=== PATIENT | female | born 1945 | race Asian ===

== ENCOUNTER → 2022-07-02 10:35 | Outpatient (CLI) | payer OTHER, MEDICARE, SELFPAY ==
--- NOTE | 2022-07-02 | DI.RAD.S_ITS ---
PROCEDURE: XR LUMBAR SPINE 2-3V INDICATIONS: Low back pain, unspecified TECHNIQUE: 3 views of the lumbar spine were acquired. COMPARISON: None. FINDINGS: Bones: Generalized decrease in osseous mineralization noted. Disc space narrowing hypertrophic facet joints noted throughout the lumbar spine, particularly in the lower lumbar spine. Grade 1 anterior spondylolisthesis noted at L4-5 and L5-S1. Degenerative sclerosis noted involving both sacroiliac joints as well Soft tissues: Atherosclerotic calcification in the abdominal aorta noted without evidence of aneurysm. Surgical clips noted in the right upper quadrant IMPRESSION: Multilevel degenerative disc disease and arthropathy results in grade 1 anterior spondylolisthesis L4-5 and L5-S1 Osteopenia, atherosclerosis and cholecystectomy Approved by: Daron Gan M.D. on 07/02/2022 at 17:28
== END ==
PROVIDERS: Family Provider Internal Medicine; PCP Internal Medicine; Referring Provider Nurse Practitioner Family; Visit Provider Nurse Practitioner Family
DX: M51.36 Other intervertebral disc degeneration, lumbar region (principal); M51.37 Other intervertebral disc degeneration, lumbosacral region; M47.816 Spondylosis without myelopathy or radiculopathy, lumbar region; M47.817 Spondylosis without myelopathy or radiculopathy, lumbosacral region; M43.16 Spondylolisthesis, lumbar region; M43.17 Spondylolisthesis, lumbosacral region; M85.88 Other specified disorders of bone density and structure, other site; I70.0 Atherosclerosis of aorta; M54.50 Low back pain, unspecified; Z90.49 Acquired absence of other specified parts of digestive tract
CPT/HCPCS: 72100

== ENCOUNTER → 2022-12-04 12:55 | Outpatient (CLI) | payer OTHER, MEDICARE, SELFPAY ==
--- NOTE | 2022-12-04 | DI.MRI.S_ITS ---
PROCEDURE: MR LUMBAR SPINE WO CON INDICATIONS: DEGENERATIVE SPONDYLOLISTHESIS TECHNIQUE: Noncontrast sagittal T1 spin echo and T2 fast echo, sagittal STIR, and T2 fast spin echo through the lumbar spine. In cases with scoliosis, additional coronal T2 fast spin echo may be performed. COMPARISON: [facility], MR, MR THORACIC SPINE WITH/WITHOUT CONTRAST, 03/31/2021, 14:34. [facility], CR, XR LUMBAR SPINE 2-3V, 07/02/2022, 10:43. FINDINGS: Image quality: Excellent. Alignment and Curvature: There is trace anterolisthesis of L3 on L4, L4 on L5. Bone Marrow: Marrow is of normal overall signal. Focus of decreased T1 and T2 signal is present at T12. This is unchanged compared to prior exam in 2017.. No acute vertebral body compression fractures. Spinal Cord: Conus medullaris terminates at the L1 level. Visualized cord demonstrates normal signal and size. Paraspinous Soft Tissues: No paravertebral masses. T2 hyperintensities are present within the kidneys most suggestive of simple cysts. Discs: Mild multilevel disc desiccation. T12-L1: No disc bulge, spinal stenosis or foraminal narrowing. No interval change. L1-L2: No disc bulge or spinal stenosis. Mild left foraminal narrowing with facet and ligamentum flavum hypertrophy. Minimal epidural lipomatosis. L2-L3: Minimal disc bulge with minimal to mild spinal stenosis. Moderate bilateral foraminal narrowing with facet and ligamentum flavum hypertrophy. L3-L4: Mild disc bulge with moderate to severe spinal stenosis and canal compression. Moderate to severe bilateral foraminal narrowing with facet and ligamentum flavum hypertrophy. L4-L5: Mild disc bulge with severe spinal stenosis and canal compression. Moderate bilateral foraminal narrowing with facet and ligamentum flavum hypertrophy. L5-S1: Mild disc bulge with mild spinal stenosis. Mild left foraminal narrowing with facet and ligament flavum hypertrophy. IMPRESSION: Multilevel spinal stenosis most severe at L4-5 secondary to disc bulge with contributing effect of facet/ligamentum flavum arthropathy. Multilevel overall moderate to severe foraminal narrowing secondary to facet arthropathy. Hypointense T1 and T2 signal within the T12 vertebral body stable since 2020 and suggestive of lipid poor hemangioma. Dictated by: Carolynn Cordoba M.D. on 12/04/2022 at 16:51 Approved by: Carolynn Cordoba M.D. on 12/04/2022 at 16:55
== END ==
PROVIDERS: Family Provider Internal Medicine; PCP Internal Medicine; Referring Provider Orthopaedic Surgery Orthopaedic Surgery of the Spine; Visit Provider Orthopaedic Surgery Orthopaedic Surgery of the Spine
DX: M43.10 Spondylolisthesis, site unspecified (principal); R29.898 Other symptoms and signs involving the musculoskeletal system; M48.061 Spinal stenosis, lumbar region without neurogenic claudication; M51.36 Other intervertebral disc degeneration, lumbar region; M47.816 Spondylosis without myelopathy or radiculopathy, lumbar region
CPT/HCPCS: 72148

== ENCOUNTER → 2022-12-24 09:30 | Outpatient (CLI) | payer OTHER, MEDICARE, SELFPAY | PROVIDERS: Family Provider Internal Medicine; PCP Physician Assistant; Referring Provider Orthopaedic Surgery Orthopaedic Surgery of the Spine; Visit Provider Orthopaedic Surgery Orthopaedic Surgery of the Spine | DX: Z01.818 Encounter for other preprocedural examination (principal) | CPT/HCPCS: 93005 ==

== ENCOUNTER → 2022-12-25 07:03 | Outpatient (CLI) | payer OTHER, MEDICARE, SELFPAY ==
[2022-12-25 08:20] LABS: BUN Creatinine Ratio 26.5 (6-22); Blood Urea Nitrogen 18 mg/dL (7-17); Calcium 9.4 mg/dL (8.4-10.2); Carbon Dioxide 30 mmol/L (22-32); Chloride 101 mmol/L (98-107); Estimated Glomerular Filt Rate > 60 mL/min (>60); Glucose 104 mg/dL (80-110); HEMOLYSIS < 15 (0-50); Potassium 3.8 mmol/L (3.4-5.1); Sodium 137 mmol/L (137-145)
[2022-12-25 08:21] LABS: Add Manual Diff / Slide Review NO; Basophils Absolute Auto 100 /uL (0-100); Basophils Percent Auto 1.1 % (0-2); Eosinophils Absolute Auto 0 /uL (0-450); Eosinophils Percent Auto 0.9 % (2-4); Hemoglobin 13.3 g/dL (12.0-16.0); Lymphocytes Absolute Auto 2200 /uL (1100-4500); Lymphocytes Percent Auto 41.5 % (25-40); Mean Corpuscular Volume 91.2 fL (80-100); Monocytes Absolute Auto 400 /uL (0-900); Monocytes Percent Auto 8.2 % (3-14); Neutrophils Absolute Auto 2600 /uL (1500-7000); Neutrophils Percent Auto 48.3 % (50-75); Platelet Count 307 X10^3/uL (150-400); Red Blood Cell Count 4.27 X10^6/uL (4.0-5.2); Red Cell Distribution Width 12.7 % (11.6-14.8); White Blood Cell Count 5.3 X10^3/uL (4.5-11.0)
[2022-12-26 07:31] LABS: x Labcorp Estim. Avg Glu (eAG) 123 mg/dL (.); x Labcorp Hemoglobin A1c 5.9 % (4.8-5.6)
== END ==
PROVIDERS: Family Provider Internal Medicine; PCP Physician Assistant; Referring Provider Orthopaedic Surgery Orthopaedic Surgery of the Spine; Visit Provider Orthopaedic Surgery Orthopaedic Surgery of the Spine
DX: Z01.812 Encounter for preprocedural laboratory examination (principal); R73.9 Hyperglycemia, unspecified
CPT/HCPCS: 36415; 80048; 83036; 85025

== ENCOUNTER → 2023-01-17 12:28 | Outpatient (CLI) | payer OTHER, MEDICARE, SELFPAY ==
--- NOTE | 2023-01-17 | DI.CT.S_ITS ---
PROCEDURE: CT LUMBAR SPINE WO CON INDICATIONS: Spinal stenosis, lumbar region TECHNIQUE: Noncontrast 3 mm thick sections acquired from the T12 level to the sacrum. Sagittal and coronal reformats were constructed. For radiation dose reduction, the following was used: automated exposure control. COMPARISON: [facility], MR, MR LUMBAR SPINE WO CON, 12/04/2022, 13:37. FINDINGS: Image quality: Diagnostic Bones: There is normal bony alignment. No acute vertebral body compression fractures. No suspicious lytic or blastic bony lesions. No pars defects. T12-L1: Bilateral facet arthropathy. No significant neuroforaminal or spinal canal stenosis. L1-L2: Degenerative endplate changes. Mild bilateral facet arthropathy. Mild bilateral neuroforaminal stenosis. No significant spinal canal stenosis. L2-L3: Moderate bilateral facet arthropathy. Ligamentum flavum hypertrophy. Minimal disc bulge. Moderate bilateral neural foraminal stenosis without significant spinal canal stenosis. L3-L4: Moderate bilateral facet arthropathy. Ligamentum flavum hypertrophy. Small disc bulge. Moderate-severe bilateral neuroforaminal stenosis. Moderate-severe spinal canal stenosis. L4-L5: Stable grade 1 anterolisthesis of L4 on L5. Severe bilateral facet arthropathy. Symmetric disc bulge. Severe spinal canal stenosis. Moderate bilateral neuroforaminal stenosis. L5-S1: Mild bilateral facet arthropathy. Ligamentum flavum hypertrophy. Minimal symmetric disc bulge. Mild spinal canal stenosis. Mild bilateral neuroforaminal stenosis. Soft tissues: No retroperitoneal masses or hematomas. Visualized aorta is normal in caliber. Atherosclerosis. Status post cholecystectomy. IMPRESSION: 1. Moderate-severe multilevel, multifactorial lumbar spondylosis as detailed above with significant bilateral neuroforaminal stenosis and spinal canal stenosis described above. 2. Accounting for differences in imaging modality, no acute findings and no significant interval change compared to MRI dated December 04, 2022. Dictated by: Shad Fairbanks M.D. on 01/17/2023 at 17:39 Approved by: Shad Fairbanks M.D. on 01/17/2023 at 17:50
== END ==
PROVIDERS: Family Provider Internal Medicine; PCP Physician Assistant; Referring Provider Orthopaedic Surgery Orthopaedic Surgery of the Spine; Visit Provider Orthopaedic Surgery Orthopaedic Surgery of the Spine
DX: M48.062 Spinal stenosis, lumbar region with neurogenic claudication (principal); M48.07 Spinal stenosis, lumbosacral region; M47.816 Spondylosis without myelopathy or radiculopathy, lumbar region; M47.817 Spondylosis without myelopathy or radiculopathy, lumbosacral region
CPT/HCPCS: 72131

== ENCOUNTER → 2023-03-10 09:57 | Outpatient (CLI) | payer OTHER, MEDICARE, SELFPAY ==
--- NOTE | 2023-03-10 | DI.RAD.S_ITS ---
Bone Density Report Name: PRABHA QUINONES Age: 77 Sex: Female Ethnicity: Date of : 1945 Indication: screening for osteoporosis; Referring Provider: SARAH GARCIA Study: Bone densitometry was performed. Exam Date: March 10, 2023 Accession number: [id number] Bone Density: Region BMD T-score Z-score Classification AP Spine(L1-L4) 0.829 -2.0 0.5 Osteopenia Femoral Neck (Left) 0.559 -2.6 -0.5 Osteoporosis Total Hip (Left) 0.689 -2.1 -0.2 Osteopenia Femoral Neck (Right) 0.509 -3.1 -0.9 Osteoporosis Total Hip (Right) 0.629 -2.6 -0.7 Osteoporosis Total Hip Mean 0.659 -2.4 -0.5 Osteopenia World Health Organization criteria for BMD impression classify patients as: Normal (T-score at or above -1.0), Osteopenia (T-score between -1.0 and -2.5), or Osteoporosis (T-score at or below -2.5). 10-year Fracture Risk: FRAX not reported because: Premenopausal woman Some T-score for Spine Total or Hip Total or Femoral Neck at or below -2.5 Treated for osteoporosis Impression: The patient's bone mass is within expected range for age, gender and ethnicity. Discussion: It is important to ask patients whether they are taking their medications and to encourage continued and appropriate compliance with their osteoporosis therapies to reduce fracture risk. It is also important to review their risk factors and encourage appropriate calcium and vitamin D intakes, exercise, fall prevention and other lifestyle measures. Follow-Up: Consider a repeat BMD and Vertebral Fracture Assessment (VFA) exam in 2 years or sooner if medically necessary, to reassess this patient's status. Reported by: AYALA DOUGLAS MD on 03/10/2023 10:55:00 AM.
== END ==
PROVIDERS: Family Provider Internal Medicine; PCP Nurse Practitioner Family; Referring Provider Nurse Practitioner Family; Visit Provider Nurse Practitioner Family
DX: M81.0 Age-related osteoporosis without current pathological fracture (principal); Z13.820 Encounter for screening for osteoporosis; Z79.83 Long term (current) use of bisphosphonates; Z78.0 Asymptomatic menopausal state
CPT/HCPCS: 77080

== ENCOUNTER → 2024-05-16 11:24 | Outpatient (CLI) | payer OTHER, MEDICARE, SELFPAY ==
--- NOTE | 2024-05-16 11:32 | DI.RAD.S_ITS ---
PROCEDURE: XR LUMBAR SPINE MIN 4V INDICATIONS: Spinal stenosis, lumbar region with neurogenic claudication TECHNIQUE: 5 views of the lumbar spine acquired, including flexion and extension views. COMPARISON: [facility], CR, XR LUMBAR SPINE 2-3V, 07/02/2022, 10:43. FINDINGS: Bones: 5 nonrib-bearing vertebrae are present. Grade 1 anterolisthesis of L3 on L4 and L4 on L5. Diffusely decreased osseous mineralization. No vertebral body compression fractures. No suspicious bony lesions. There is multilevel facet arthropathy, worse at L4-5 and L5-S1. Multilevel disc height loss with degenerative endplate changes and spurring is present. Soft tissues: Overlying bowel gas pattern is normal. No suspicious soft tissue calcifications. Atherosclerotic vascular calcifications. Cholecystectomy clips. Flexion/extension: There is significantly limited range of motion, with preserved alignment. IMPRESSION: Similar appearance of multilevel degenerative changes of the lumbar spine with significantly limited range of motion. Dictated by: Anuel Ramos M.D. on 05/16/2024 at 15:16 Approved by: Anuel Ramos M.D. on 05/16/2024 at 15:18
== END ==
PROVIDERS: Family Provider Internal Medicine; PCP Nurse Practitioner Family; Referring Provider Orthopaedic Surgery Orthopaedic Surgery of the Spine; Visit Provider Orthopaedic Surgery Orthopaedic Surgery of the Spine
DX: M48.062 Spinal stenosis, lumbar region with neurogenic claudication (principal); M43.10 Spondylolisthesis, site unspecified; M47.816 Spondylosis without myelopathy or radiculopathy, lumbar region; M47.817 Spondylosis without myelopathy or radiculopathy, lumbosacral region
CPT/HCPCS: 72110

== ENCOUNTER → 2024-05-24 09:14 | Outpatient (CLI) | payer OTHER, MEDICARE, SELFPAY ==
--- NOTE | 2024-05-24 09:48 | EKG_ITS ---
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
[2024-05-24 10:28] LABS: Add Manual Diff / Slide Review NO; Basophils Absolute Auto 100 /uL (0-100); Basophils Percent Auto 0.9 % (0-2); Eosinophils Absolute Auto 100 /uL (0-450); Hematocrit 42.4 % (36-46); Hemoglobin 13.9 g/dL (12.0-16.0); Lymphocytes Absolute Auto 2700 /uL (1100-4500); Lymphocytes Percent Auto 40.2 % (25-40); Mean Corpuscular HGB Conc 32.9 % (30-36); Mean Corpuscular Hemoglobin 30.4 PG (26-34); Mean Corpuscular Volume 92.4 fL (80-100); Monocytes Absolute Auto 500 /uL (0-900); Neutrophils Absolute Auto 3500 /uL (1500-7000); Neutrophils Percent Auto 50.9 % (50-75); Platelet Count 362 X10^3/uL (150-400); Red Blood Cell Count 4.59 X10^6/uL (4.0-5.2); Red Cell Distribution Width 12.9 % (11.6-14.8); White Blood Cell Count 6.8 X10^3/uL (4.5-11.0)
[2024-05-24 11:22] LABS: BUN Creatinine Ratio 24.2 (6-22); Blood Urea Nitrogen 15 mg/dL (7-17); Calcium 9.6 mg/dL (8.4-10.2); Carbon Dioxide 26 mmol/L (22-32); Chloride 103 mmol/L (98-107); Estimated Glomerular Filt Rate > 60 mL/min (>60); Glucose 102 mg/dL (80-110); HEMOLYSIS < 15 (0-50); Potassium 3.9 mmol/L (3.4-5.1); Sodium 138 mmol/L (137-145)
== END ==
LOC: LAB 09:17
PROVIDERS: Family Provider Internal Medicine; PCP Nurse Practitioner Family; Referring Provider Orthopaedic Surgery Orthopaedic Surgery of the Spine; Visit Provider Orthopaedic Surgery Orthopaedic Surgery of the Spine
DX: Z01.818 Encounter for other preprocedural examination (principal); Z01.812 Encounter for preprocedural laboratory examination
CPT/HCPCS: 36415; 80048; 85025; 93005

== ENCOUNTER → 2024-05-25 07:59 | Outpatient (CLI) | payer OTHER, MEDICARE, SELFPAY ==
--- NOTE | 2024-05-25 | DI.MRI.S_ITS ---
PROCEDURE: MR LUMBAR SPINE WO CON INDICATIONS: Spinal stenosis, lumbar region with neurogenic claudication TECHNIQUE: Noncontrast sagittal T1 spin echo and T2 fast echo, sagittal STIR, and T2 fast spin echo through the lumbar spine. In cases with scoliosis, additional coronal T2 fast spin echo may be performed. COMPARISON: [facility], MR, MR LUMBAR SPINE WO CON, 12/04/2022, 13:37. [facility], CR, XR LUMBAR SPINE MIN 4V, 05/16/2024, 11:37. [facility], CT, CT LUMBAR SPINE WO CON, 01/17/2023, 12:50. FINDINGS: Image quality: Excellent. Alignment and Curvature: There is minimal anterolisthesis at L3-L4, with mild grade 1 anterolisthesis at the L4-L5 level. No associated pars defects are seen. Bone Marrow: Marrow is of normal overall signal. No acute vertebral body compression fractures. Spinal Cord: Conus medullaris terminates at the L1 level. Visualized cord demonstrates normal signal and size. Paraspinous Soft Tissues: No paravertebral masses. T12-L1: Normal appearance. L1-L2: No significant abnormality is seen. L2-L3: The disc height is well-preserved. Loss of disc signal is seen at this level. Mild generalized disc bulge is seen. Mild to moderate facet hypertrophy is seen. Associated hypertrophy of the ligamentum flavum can be seen. There is mild right-sided and moderate left-sided neural foraminal narrowing. Mild to moderate central canal narrowing is seen. These imaging findings have mildly progressed compared to the prior study. L3-L4: The disc height is well-preserved. Loss of disc signal is seen at this level. Moderate generalized disc bulge is seen. There is a superimposed central disc protrusion. Moderate to prominent facet hypertrophy is seen. Moderate bilateral neural foraminal narrowing can be seen, right worse than left. Moderate to severe central canal narrowing is seen. Compared to 2022, these degenerative changes are similar. L4-L5: Moderate loss of disc height is seen. Loss of disc signal is seen. Moderate generalized disc bulge is seen. There is a superimposed central disc protrusion. Prominent facet hypertrophy is seen. There is moderate right-sided and at least moderate left-sided neural foraminal narrowing. There is a minimal degree of compression seen upon the exiting left L4 nerve root. There is severe central canal narrowing. These degenerative changes are progressed compared to the prior MRI. L5-S1: Mild loss of disc height is seen. Loss of disc signal is seen. Mild generalized disc bulge is seen. Moderate to prominent facet hypertrophy can be seen. Mild bilateral neural foraminal narrowing is seen. No significant central canal narrowing is seen. When comparison is made with the prior images, these findings are similar. IMPRESSION: Lumbar spine degenerative changes are seen, which are progressed at L4-L5 compared to 2022 and mildly progressed at L2-L3. Dictated by: Zachary Conner M.D. on 05/25/2024 at 11:08 Approved by: Zachary Conner M.D. on 05/25/2024 at 11:12
== END ==
LOC: MRI 08:00
PROVIDERS: Family Provider Internal Medicine; PCP Nurse Practitioner Family; Referring Provider Orthopaedic Surgery Orthopaedic Surgery of the Spine; Visit Provider Orthopaedic Surgery Orthopaedic Surgery of the Spine
DX: M48.062 Spinal stenosis, lumbar region with neurogenic claudication (principal); M48.07 Spinal stenosis, lumbosacral region; M47.816 Spondylosis without myelopathy or radiculopathy, lumbar region; M47.817 Spondylosis without myelopathy or radiculopathy, lumbosacral region
CPT/HCPCS: 72148

== ENCOUNTER 2024-05-31 12:40 | Inpatient (IN) | payer OTHER, MEDICARE, SELFPAY ==
[2024-05-26 13:27] VITALS: BMI 23.4
[2024-05-31] VITALS (11 sets, daily range): BP systolic 110–154; BP diastolic 46–76; PULSE 66–89; RESP 12–21; TEMP 35.7–36.6; O2SAT 95–99; BMI 23.0
--- NOTE | 2024-05-31 | DI.RAD.S_ITS ---
PROCEDURE: XR LUMBAR SPINE 2-3V INDICATIONS: L4-5 TLIF TECHNIQUE: 2 intraoperative fluoroscopic views of the lumbar spine were acquired. COMPARISON: [facility], , XR LUMBAR SPINE MIN 4V, 05/16/2024, 11:37. FINDINGS: Intraoperative fluoroscopic images shows posterior fusion at L4-5 level with surgical hardware and intervertebral spacer in place. IMPRESSION: Fluoro guidance was provided intraoperatively for L4-5 TLIF performed by ordering physician. Dictated by: Betito Hennessy M.D. on 05/31/2024 at 16:34 Approved by: Betito Hennessy M.D. on 05/31/2024 at 16:35
[2024-05-31] MEDS: LACTATED RINGERS 1,000 ML 42 ML IV (10:13)
--- NOTE | 2024-05-31 10:56 | PM.PREOP ---
Pre-operative Note Interval Note History & Physical reviewed/Exam performed by Physician: Yes Changes to H&P: No
[2024-05-31] MEDS: CEFAZOLIN 2 GM/100 ML PREMIX 100 ML IV ×2 (11:30→18:56)
--- NOTE | 2024-05-31 11:53 | SUR.OPER ---
Prone on spine table, head in foam head support, padded chest and pelvic supports, gel pad at knees, lower legs supported by pillows; nipples, genitalia and toes free of pressure, arms secured on foam padded arm boards at <90 degrees abduction. Tape over blanket at thigh secured to table.
[2024-05-31] MEDS: BUPIVACAINE LIPOSOME 266 MG/20 ML VIAL INJ (11:58)
[2024-05-31] MEDS: BUPIVACAINE 0.25% (PF) 60 ML, EPINEPHrine 0.15 MG INJ (11:58)
--- NOTE | 2024-05-31 13:20 | PM.OP.1 ---
Operative Date/Time/Diagnoses Date of procedure: 05/31/24 Time of procedure: 11:00 Pre-op diagnosis: 1. L4-5 spinal stenosis with neurogenic claudication 2. L4-5 anterolisthesis Post-op diagnosis: same Procedure & Clinicians Procedure: 1. L4-5 Postero-lateral and posterior interbody fusion 2. L4-5 interbody cage placement. 3. L4-5 decompressive laminectomy with bilateral facetecomies 4. L4-5 Posterior non-segmental instrumentation 5. Lincoln of bone marrow from iliac crest 6. Utilization of microsurgical technique and operating microscope 7. Utilization of robotic assisted navigation Same procedure as scheduled: Yes Indications: Patient has been having chronic back pain and worsening lumbar radiculopathy and symptoms of neurogenic claudication. Patient was found to have severe spinal stenosis with L4-5 anterolisthesis correlating with her symptoms. Patient failed multiple conservative management with worsening pain weakness and numbness in her lower extremity. Patient has been having difficulty performing activity of daily living. After discussing risks benefits of treatment options, patient elected proceed with surgery. Surgeon: Meño Miranda Marina Porter: Nu Cruz Click Yes if Unassisted: No Anesthesia Type: General Operative Notes Closure Type: primary Specimen(s): none sent Prosthetic devices, grafts, tissues, transplants, or devices: Globus CREO MIS screws, Rise cage Estimated Blood Loss (mL): 50 Procedure in detail: Patient was seen in the preoperative area. Risks and benefits of the surgery was discussed with the patient. Informed consent was obtained from the patient and placed in the chart. Surgical site was marked. Patient was taken to the operative room. General anesthesia was administered. Prophylactic antibiotic was given to the patient less than 30 min before the incision was made. Patient was placed into a prone position on the Dandre table. Patient's back was then prepped and draped in the sterile fashion. Time-out was performed at this time. After patient was prepped and draped, patient's PSIS was palpated and marked bilaterally. Small 1 cm incision was made over the PSIS for placement of the reference probes. Two trocar was placed into the PSIS 1 on each side. The reference probe was attached to the trocar of the reference apparatus. At this time the C-arm imaging was used to confirm AP and lateral of L4-5 vertebrae and merged the C-arm imaging using the Podcast Ready robotic navigation system with the CT of the lumbar spine. After successful merging was completed and confirmed, skin marker was used to sarah out the skin incision using the Podcast Ready robotic arm. Bilateral incision was made at this time. Pre templated trajectory was used and guided using the Podcast Ready robotic navigation system for bilateral L4-5 pedicle screw placement. This was done by using the robotic arm to guide the high-speed bur to make a cortical entry point. Next a drill was placed also using the robotic arm and guided using the navigation system drilling partially through bilateral L4 and L5 pedicles. Next L4-5 pedicle screws it was pre templated and measured was placed onto the power city bus driver and inserted into the pedicles bilaterally. After all 4 screws were placed C-arm imaging was taken of both AP and lateral to confirm the placement. Excellent placement of the screws were confirmed and a matched precisely with the pre planned screw placement using the navigation system. MARs retractor was inserted using Selenokhodivation guidence. Globus MARS retractors was placed inside the incision and docked onto the L4 lamina. Using microsurgical technique and operating microscope, a L4 laminectomy and L4-5 facetectomy was performed using a Kerrison rongeur. Patient was found have severe lateral recess and neural foramen stenosis which was fully decompressed after the laminectomy facetectomy. The laminectomy and facetectomy was performed in order to decompress patient's cauda equina as well as the nerve roots exiting at the L4-5 level. More than 75% of the facets were removed during the process of decompression rendering L4-5 level grossly unstable and required a fusion procedure at the same time. The disc space at L4-5 was identified, and a total diskectomy was performed at L4-5 level. The endplates were decorticated using a rasp and shaver. The total diskectomy and decortication was performed at L4-5 level in order to to accomplish a L4-5 fusion. The local bone from the laminectomy and facetectomy was saved for local bone grafting. After the total diskectomy and decortication was completed, Viacel bone graft material was combined with local bone that was harvested earlier. At this time, a separate skin is incision was made over the iliac crest. A Jamshidi needle was inserted into the iliac crest through a separate skin incision. 5 cc of bone marrow aspiration was obtained through the separate skin incision using a Jamshidi needle from the iliac crest. The bone marrow aspiration was combined with local bone and the Viacel bone grafting material. The bone grafting material was placed into the L4-5 interbody space along with a expandable cage. The cage was expanded to its maximum height using the torque limiting screwdriver. The disc preparation as well as the cage insertion were also performed under navigation guidance. After the cage was placed, AP and lateral C-arm imaging was taken to confirm placement of the cage and excellent position was confirmed. Globus MARS retractor was inserted and docked onto the L4-5 posterolateral gutter on the right side. Using the power drill, posterior-lateral decortication was performed at L5-S1 level until bleeding cortical bone was identified. The remaining bone grafting material was placed into the L4-5 posterior lateral gutter he order to accomplish posterolateral fusion at the L5-S1 level. At this time the tulips were attached to the L4-5 pedicle screw shanks. After measuring the length of the rods, they were inserted into the tulips of the pedicle screws and locked in place using locking caps and torque limiting screwdriver bilaterally. Total 4 caps and 2 titanium rods was used in order to complete the posterior instrumentation construct. After all the hardware was placed, and confirmed with AP and lateral C-arm imaging, the wound was then irrigated with sterile normal saline and packed with Ray-Sarah gauze for 3 min to accomplish hemostasis. After the gauze was removed the deep fascia was closed with #1 Vicryl suture. The subcutaneous layer was closed with 2-0 Vicryl. The skin was closed with skin adwoa. Patient tolerated the procedure well. There were no complications. Neuro monitoring system was used to monitor patient's neurologic status throughout entire procedure. There was no disturbance of the neural monitoring signals throughout the case. The Operation could not have been safely performed without compromising the technical result or length of the procedure, without the assistance of a skilled surgeon assistant. The surgeon assistant was medically necessary for proper positioning, retraction and manipulation of instruments, proper exposure, surgical preparation, and manipulation of tissue. A pulmonary status Complications: none Post-operative Condition: stable Disposition: PACU Plan for aftercare: admit to inpatient hospital
[2024-05-31] MEDS: OXYCODONE IR 5 MG TABLET PO (14:19)
[2024-05-31] MEDS: LACTATED RINGERS 1,000 ML 125 ML IV (14:19)
--- NOTE | 2024-05-31 15:35 | PT.IIE ---
Current Diagnoses Spondylolisthesis, lumbar region (05/31/24) Spinal stenosis, lumbar region with neurogenic claudication (05/31/24) Surgery Performed Operation Date: 05/31/24 10:45 Actual Procedures p L4-5 TLIF - Meño Miranda MD Surgical History (Last Updated 05/26/24 @ 14:24 by Melinda Moreno, RN) History of carpal tunnel release History of section Hx of cholecystectomy Medical History (Last Updated 05/26/24 @ 13:28 by Melinda Moreno, RN) HLD (hyperlipidemia) HTN (hypertension) Osteoporosis Physical Therapy Inpatient Evaluation/Re-Eval M1 PT/OT-IP Prior Functional Status Start: 05/31/24 16:32 Freq: NEEDED Status: Active Protocol: Document 05/31/24 15:35 AB (Rec: 05/31/24 16:44 AB [id number]) Medical Review Prior Functional Status Medical History Reviewed Yes Communication able to make needs known Mobility and Gait pt stated that she was independent with all mobilities and ambulation without AD; spouse stated that pt is very active: walks and does gardening Social History Household Members spouse Living Arrangements House Number of Floors (Floors) One Floor Number of Stairs To Enter/Railing? 1 step to enter the house Home Environment High Toilet,Tub/Shower Additional Social History Comment spouse stated that he will get a FWW for pt to use pt has an adjustable bed M2 PT-IP Current Condition Start: 05/31/24 16:32 Freq: NEEDED Status: Active Protocol: Document 05/31/24 15:35 AB (Rec: 05/31/24 16:44 AB [id number]) Physical Therapy Current Condition Current Condition Evaluation Date 05/31/24 Treatment Diagnosis s/p L4-5 TLIF; difficulty in walking Onset Date 05/31/24 M3 PT-IP Subjective Start: 05/31/24 16:32 Freq: NEEDED Status: Active Protocol: Document 05/31/24 15:35 AB (Rec: 05/31/24 16:44 AB [id number]) Subjective Physical Therapy Visit Type Type Initial Evaluation Visit Start Time 15:35 Visit Stop Time 16:10 Number of HEATING AND VENTILATING TENDER Visits 0 Physical Therapy Visit Comments Patient Comments agreeable to do PT Therapy Pain Assessment Pain When Pain Assessed At Rest Pain Present Pain Present Pain Reported Location Back Intensity 6 Scale Used Numeric (0 - 10) Pain Behaviors Guarding Pain Management Techniques Distraction,Modification of Treatment,Re-positioning, Timing of Activity with Medications M4 PT-IP Mobility and Gait Start: 05/31/24 16:32 Freq: NEEDED Status: Active Protocol: Document 05/31/24 15:35 AB (Rec: 05/31/24 16:44 AB [id number]) PT-Bed Mobility Assessment Rolling Type of Rolling Log Rolling Level of Assist Minimal Assistance Supine to Sit Supine to Sit Minimal Assistance PT-Transfer Assessment Sit to and From Stand Sit to and from Stand Minimal Assistance,1 Person Assistance Equipment Transfer Assistive Device Gait Belt,Front Wheeled Walker Orthotic/Prosthetic Devices or Brace: No Transfers Transfer Destination Chair,Toilet Transfer Technique ambulated Transfer Ability Level of Assist Minimal Assistance,1 Person Assistance,Use of Upper Extremities Comments Mobility Comments pt supine in bed and spouse in room. obtained PLOF and home set up. post-op folder provided to pt and reviewed contents. educated pt regarding back precautions and log roll bed mobility. BP: 121/79. pt completed log roll supine to sit min A and max cues for techniques. pt required increase time to complete tasks and very slow with movement. pt able to sit on EOB SBA. pt requested to use the toilet. completed sit to stand min A and cues and ambulated towards the toilet using FWW min A. presents with unsteady gait. RLE tends to cross midline during ambulation. cued to corret. pt requiring min A for controlled descend to the toilet using grab bar to assist. pt completed sit to stand from the toilet using grab bar min A and cues. pt ambulated to the chair using FWW min A ~ 12 ft. positioned pt on the chair. call light and table placed within reach. Left pt with spouse. Gait Assessment Gait Gait Assistance Required: Minimum Assistance Distance (Feet) 25 Able to Maintain Weight Bearing Status Yes During Gait Assistive Devices Assistive Device Gait Belt,Front Wheeled Walker Orthotic/Prosthetic Devices or Brace: No Gait Deviations General Gait Pattern Decreased Stride Length, Decreased Feet Clearance,Step- to Gait Factors Limiting Gait Function Factors Limiting Gait Function Decreased Activity Tolerance, Decreased Strength,Difficulty Following Directions,Limited Range of Motion,Pain,Poor Balance,Poor Safety Awareness PT-Balance Assessment Sitting Balance and Reactions Static Sitting Balance Ability Good Dynamic Sitting Balance Ability Good Standing Balance and Reactions Static Standing Balance Ability Fair Dynamic Standing Balance Ability Fair Device Used FWW M5 PT-IP Objective Assessments Start: 05/31/24 16:32 Freq: NEEDED Status: Active Protocol: Document 05/31/24 15:35 AB (Rec: 05/31/24 16:44 AB [id number]) Orientation Orientation/Cognition Level of Alertness Alert Orientation Name,Month,Date,Year,Place, Situation Safety Awareness Decreased Safety Awareness Memory Description No Deficits Noted Gross Range of Motion Lower Extremity ROM Assessment Within Functional Limits Strength Lower Extremity Strength Assessment Within Functional Limits Sensation Assessment Sensation Gross Sensation WNL Muscle Tone Muscle Tone WNL Yes M6 PT-IP Treatment Start: 05/31/24 16:32 Freq: NEEDED Status: Active Protocol: Document 05/31/24 15:35 AB (Rec: 05/31/24 16:44 AB [id number]) Physical Therapy Treatment Education Education Provided Precautions,Weight Bearing Status,Post-Op Packet,Safety M7 PT-IP Assessment and Plan Start: 05/31/24 16:32 Freq: NEEDED Status: Active Protocol: Document 05/31/24 15:35 AB (Rec: 05/31/24 16:44 AB [id number]) PT Summary Assessment and Plan Potential Rehabilitation Potential Fair Status of Condition at Evaluation Evolving Summary Impairments Pain,ROM,Strength,Balance, Coordination,Sensation,Tone, Cognition,Bed Mobility, Transfers,Gait,Activity Tolerance Assessment Summary pt is a 78 y/o F s/p L4-5 TLIF POD 0. pt with back precautions. pt requiring min A with mobility using FWW and cues for techniques and safety. pt will likely improve during hospital stay. will conduct caregiver training when appropriate as well as stair climbing training. pt plans to go home and spouse to assist her. Goals Bed Mobility Goal Independent Transfer Goal Independent,Front Wheeled Walker Gait Goal Independent,Front Wheel Walker Gait Distance 200 Other Goals up/down 1 step using FWW mod I Days to Meet Goals 5 Frequency of Treatment Frequency Of Treatment Twice a Day Treatment Plan Physical Therapy Treatment Plan Bed Mobility Training,Transfer Training,Gait Training, Therapeutic Exercise,Balance Retraining,Post Op Education, Discharge Planning,Hot or Cold Pack,Neuromuscular Re-ed, Coordination Retraining,Manual Therapy Precautions Lumbar Precautions Log Roll,No Twisting,Limit Bending,Lifting Restriction of 10 lbs,Gait Belt above Incisional Area Recommendations To Nursing Amount of Assist Needed 1 Person Assist Discharge Recommendations PT Discharge Recommendations Home with Assistance Transportation Needs at Discharge Private Vehicle
--- NOTE | 2024-05-31 16:05 | OT.IP.EVAL ---
Current Diagnoses Spondylolisthesis, lumbar region (05/31/24) Spinal stenosis, lumbar region with neurogenic claudication (05/31/24) Surgery Performed Operation Date: 05/31/24 10:45 Actual Procedures p L4-5 TLIF - Meño Miranda MD Past Medical History (Last Updated 05/26/24 @ 13:28 by Melinda Moreno, RN) HLD (hyperlipidemia) HTN (hypertension) Osteoporosis Surgical History (Last Updated 05/26/24 @ 14:24 by Melinda Moreno, RN) History of carpal tunnel release History of section Hx of cholecystectomy Occupational Therapy Inpatient Evaluation/Re-Eval M2 OT-IP Current Condition Start: 05/31/24 16:09 Freq: Status: Active Protocol: Document 05/31/24 16:09 CGR (Rec: 05/31/24 16:37 CGR [id number]) Occupational Therapy Current Condition Current Condition Evaluation Date 05/31/24 Treatment Diagnosis L4-5 TLIF Diagnosis Onset Date 05/31/24 Post Operative Precautions Lumbar Precautions Log Roll,No Twisting,Limit Bending,Lifting Restriction of 10 lbs,Gait Belt above Incisional Area M3 OT- IP Subjective and Pain Start: 05/31/24 16:09 Freq: Status: Active Protocol: Document 05/31/24 16:09 CGR (Rec: 05/31/24 16:37 CGR [id number]) OT- Subjective Occupational Therapy Visit Type Type Initial Evaluation Visit Start Time 15:37 Visit Stop Time 16:05 Notes Mostly co-eval with P.T. OT Pain Assessment Pain When Pain Assessed At Rest Pain Present Pain Present Pain Reported Location Back Intensity 6 Scale Used Numeric (0 - 10) Management Techniques Distraction,Modification of Treatment,Re-positioning, Timing of Activity with Medications M4 OT- IP ADL's Start: 05/31/24 16:09 Freq: Status: Active Protocol: Document 05/31/24 16:09 CGR (Rec: 05/31/24 16:37 CGR [id number]) OT VCK-Cggl-Bacyeym General Evaluation Self-Feeding Ability Independent Comments OT Self-Feeding Comments Pt eating sandwich earlier when OT entered room to corn picker pt's call button which was on the floor. OT ADL-Grooming Comments OT Grooming Comments Not performed OT ADL-Oral Care Comments Oral Care Comments Not performed OT ADL-Dressing General Eval Lower Body Dressing Ability Total Assistance Areas Needing Assistance Socks Comments OT Dressing Comments supine in bed OT ADL-Toileting General Evaluation Toileting Ability Standby Assistance Comments OT Toileting Comments uriantion seated on toielt OT ADL-Bathing Comments OT Bathing Comments not performed M5 OT- IP IADL's Start: 05/31/24 16:09 Freq: Status: Active Protocol: Document 05/31/24 16:09 CGR (Rec: 05/31/24 16:37 CGR [id number]) OT-Instrumental Activities of Daily Living Deficits IADL Deficits Identified No Deficits Home Safety Awareness Awareness of Need for Assistance at Home Good Awareness Ability to Problem Solve Emergency Able to Problem Solve Situations Medication Management Medication Management No Deficits Identified Money Management Money Management No Deficits Identified Meal Preparation Meal Preparation No Deficits Identified Customer Experience Intern Customer Experience Intern No Deficits Identified Driving Driving Comments 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 OT- IP Functional Cognition Start: 05/31/24 16:09 Freq: Status: Active Protocol: Document 05/31/24 16:09 CGR (Rec: 05/31/24 16:37 CGR [id number]) Cognitive Factors Limiting Selfcare Function Cognitive Ability Level of Alertness Alert,Confusional State Patient Orientation Name,Age,Birthday,Month,Date, Year,Day of Week,Place, Situation Attention Span Ability Capable of Focused Attention, Capable of Sustained Attention Ability to Follow Commands Able to Follow One Step Commands with Increased Time, Able to Follow One Step Commands with Repetition Cognitive Comments Cognitive Assessment Comments Pt appears slightly confused likely from pain medications and anasthesia OT- Vision and Hearing OT- Hearing Assessment OT- Hearing Assessment WFL OT- Vision Assessment Visual Acuity Glasses For Reading Visual Attentiveness WFL Occular Pursuits WFL Visual Convergence WFL M7 OT- IP Mobility and Balance Start: 05/31/24 16:09 Freq: Status: Active Protocol: Document 05/31/24 16:09 CGR (Rec: 05/31/24 16:37 CGR [id number]) OT- Bed Mobility Assessment Rolling Type of Rolling Log Rolling,Roll to Left Level of Assistance Minimal Assistance Supine to Sit Supine to Sit Assist Minimal Assistance Scooting Scooting to Edge of Bed Standby Assistance OT-Transfer Assessment Sit to and From Stand Sit to and from Stand Minimal Assistance Transfers Transfer Ability Minimal Assistance Technique Transfer Destination Bed,Chair,Toilet Transfer Technique Stand Step Pivot Devices Transfer Assistive Devices Gait Belt,Front Wheeled Walker Comments Mobility Comments Pt with slow movements but min a for all mobility on this date. Pt ambulated to the bathroom for toileting then back to chair. OT- Gait Assessment Gait Gait Assistance Required: Minimum Assistance Assistive Devices Assistive Device Gait Belt,Front Wheeled Walker Comments Gait Ability Comments Mobility around the room and bathroom OT- Balance Assessment Sitting Balance and Reactions Static Sitting Balance Ability Good Dynamic Sitting Balance Ability Good M8 OT- IP Objective Assessments Start: 05/31/24 16:09 Freq: Status: Active Protocol: Document 05/31/24 16:09 CGR (Rec: 05/31/24 16:37 CGR [id number]) OT Gross Range of Motion Upper Extremity Range of Motion Assessment Within Functional Limits OT Strength Upper Extremity Strength Assessment Within Functional Limits Comments Strength Comments grossly 4/5 OT- Coordination Assessment Upper Extremity Finger to Nose Test Within Functional Limits Finger Tapping Test Within Functional Limits OT-Muscle Tone Assessment Muscle Tone WNL Yes OT Sensation Assessment Edema Edema Absent M9 OT- IP Assessment and Plan Start: 05/31/24 16:09 Freq: Status: Active Protocol: Document 05/31/24 16:09 CGR (Rec: 05/31/24 16:37 CGR [id number]) OT Summary Assessment and Plan Potential Rehabilitation Potential Excellent Analytic Complexity at Evaluation Moderate Summary OT Impairments Pain,Balance,Functional Cognition,Functional Mobility, Grooming,Dressing,Toileting, Bathing,Toilet Transfers, Shower Transfers,Activity Tolerance Progress Towards Goals Slow Progress due to Pain,Slow Progress due to Cognition Assessment Summary Pt presents as a moderate complexity evaluation s/p admit for L4-5 TLIF. Pt performed well in todays session with mobility needing min a for all mobility. Pt does appear a little slow on comprehension and slightly confused at times likely from the pain medication and anesthesia. Pt will likely be ready for discharge home tomorrow with husbands assist. They will need a walker and shower chair. Will educate on LB dressing tomorrow. Goals Grooming Goal Independent Dressing Goal Independent,Loom Operator,Sock Aid Toileting Goal Independent Bathing Goal Independent Toilet Transfer Goal Independent Shower Transfer Goal Independent Days to Meet Goals 2 Frequency of Treatment Frequency Of Treatment Once a Day Treatment Plan OT Treatment Plan ADL Training,Functional Cognition Training,Functional Mobility,Patient/Family Education,Discharge Planning Other Treatment Recommendations and Next LB dressing, shower if Treatment Focus appropriate Discharge Recommendations OT Discharge Recommendations Home with / Assist Available Home Equipment Needs walker, shower chair, nutritional services host, sock aid Transportation Needs at Discharge Private Vehicle
[2024-05-31] MEDS: OXYCODONE IR 10 MG TABLET PO (17:52)
[2024-06-01] MEDS: LACTATED RINGERS 1,000 ML 125 ML IV (00:59)
[2024-06-01 01:13] VITALS: BP 98/43; PULSE 64; RESP 18; TEMP 36.1; O2SAT 96
[2024-06-01 01:51] VITALS: BP 101/43
[2024-06-01] MEDS: CEFAZOLIN 2 GM/100 ML PREMIX 100 ML IV (03:36)
[2024-06-01 05:59] VITALS: BP 118/55; PULSE 68; RESP 18; TEMP 34.1; O2SAT 99
[2024-06-01 08:00] VITALS: BP 148/60; PULSE 73; RESP 16; TEMP 36.6; O2SAT 100
--- NOTE | 2024-06-01 09:16 | OT.IP.TRT ---
Current Diagnoses Spondylolisthesis, lumbar region (05/31/24) Spinal stenosis, lumbar region with neurogenic claudication (05/31/24) Arthrodesis status (05/31/24) Surgery Performed Operation Date: 05/31/24 10:45 Actual Procedures p L4-5 TLIF - Meño Miranda MD Occupational Therapy Treatment Note M2 OT-IP Current Condition Start: 05/31/24 16:09 Freq: Status: Active Protocol: Document 05/31/24 16:09 CGR (Rec: 05/31/24 16:37 CGR [id number]) Occupational Therapy Current Condition Current Condition Evaluation Date 05/31/24 Treatment Diagnosis L4-5 TLIF Diagnosis Onset Date 05/31/24 Post Operative Precautions Lumbar Precautions Log Roll,No Twisting,Limit Bending,Lifting Restriction of 10 lbs,Gait Belt above Incisional Area M3 OT- IP Subjective and Pain Start: 05/31/24 16:09 Freq: Status: Active Protocol: Document 06/01/24 10:08 CGR (Rec: 06/01/24 10:24 CGR [id number]) OT- Subjective Occupational Therapy Visit Type Type Treatment Note Visit Start Time 08:38 Visit Stop Time 09:16 Notes Pt very agreeable to therapy. OT Pain Assessment Pain When Pain Assessed At Rest Pain Present Pain Present Pain Reported Location Back Intensity 5 Scale Used Numeric (0 - 10) Management Techniques Modification of Treatment,Re- positioning,Timing of Activity with Medications M4 OT- IP ADL's Start: 05/31/24 16:09 Freq: Status: Active Protocol: Document 06/01/24 10:08 CGR (Rec: 06/01/24 10:24 CGR [id number]) OT [id number]-Anykabu Comments OT Self-Feeding Comments Pt already compelted breakfast . OT ADL-Grooming Comments OT Grooming Comments Pt performed prior to OT arrival. OT ADL-Oral Care Comments Oral Care Comments Pt performed prior to OT arrival. OT ADL-Dressing General Eval Lower Body Dressing Ability Standby Assistance Areas Needing Assistance Bra,Pull-Over Shirt,Underpants /Brief,Pants/Shorts,Socks, Shoes Assistive Devices Dressing Assistive Devices Marketing Project Coordinator,Sock Aid OT ADL-Toileting Comments OT Toileting Comments Not performed OT ADL-Bathing Comments OT Bathing Comments Not performed M5 OT- IP IADL's Start: 05/31/24 16:09 Freq: Status: Active Protocol: Document 05/31/24 16:09 CGR (Rec: 05/31/24 16:37 CGR [id number]) OT-Instrumental Activities of Daily Living Deficits IADL Deficits Identified No Deficits Home Safety Awareness Awareness of Need for Assistance at Home Good Awareness Ability to Problem Solve Emergency Able to Problem Solve Situations Medication Management Medication Management No Deficits Identified Money Management Money Management No Deficits Identified Meal Preparation Meal Preparation No Deficits Identified City Wellness Coordinator City Wellness Coordinator No Deficits Identified Driving Driving Comments 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 M6 OT- IP Functional Cognition Start: 05/31/24 16:09 Freq: Status: Active Protocol: Document 05/31/24 16:09 CGR (Rec: 05/31/24 16:37 CGR [id number]) Cognitive Factors Limiting Selfcare Function Cognitive Ability Level of Alertness Alert,Confusional State Patient Orientation Name,Age,Birthday,Month,Date, Year,Day of Week,Place, Situation Attention Span Ability Capable of Focused Attention, Capable of Sustained Attention Ability to Follow Commands Able to Follow One Step Commands with Increased Time, Able to Follow One Step Commands with Repetition Cognitive Comments Cognitive Assessment Comments Pt appears slightly confused likely from pain medications and anasthesia OT- Vision and Hearing OT- Hearing Assessment OT- Hearing Assessment WFL OT- Vision Assessment Visual Acuity Glasses For Reading Visual Attentiveness WFL Occular Pursuits WFL Visual Convergence WFL M7 OT- IP Mobility and Balance Start: 05/31/24 16:09 Freq: Status: Active Protocol: Document 06/01/24 10:08 CGR (Rec: 06/01/24 10:24 CGR [id number]) OT- Bed Mobility Assessment Rolling Type of Rolling Log Rolling,Roll to Right Level of Assistance Contact Guard Assistance, Minimal Assistance Supine to Sit Supine to Sit Assist Contact Guard Assistance, Minimal Assistance Sit to Supine Sit to Supine Assist Contact Guard Assistance, Minimal Assistance Scooting Scooting to Edge of Bed Independent OT-Transfer Assessment Sit to and From Stand Sit to and from Stand Standby Assistance Transfers Transfer Ability Standby Assistance Technique Transfer Destination Bed,Chair Transfer Technique Stand Step Pivot Devices Transfer Assistive Devices Gait Belt,Front Wheeled Walker Comments Mobility Comments Pt mobilized well but needed min a for bed mobility initially. Practiced log roll a second time and pt did better. Pt left sitting up in chair at end of session. OT- Gait Assessment Gait Gait Assistance Required: Standby Assistance Assistive Devices Assistive Device Gait Belt,Front Wheeled Walker Comments Gait Ability Comments Mobility around the room. OT- Balance Assessment Sitting Balance and Reactions Static Sitting Balance Ability Good Dynamic Sitting Balance Ability Good M8 OT- IP Objective Assessments Start: 05/31/24 16:09 Freq: Status: Active Protocol: Document 05/31/24 16:09 CGR (Rec: 05/31/24 16:37 CGR [id number]) OT Gross Range of Motion Upper Extremity Range of Motion Assessment Within Functional Limits OT Strength Upper Extremity Strength Assessment Within Functional Limits Comments Strength Comments grossly 4/5 OT- Coordination Assessment Upper Extremity Finger to Nose Test Within Functional Limits Finger Tapping Test Within Functional Limits OT-Muscle Tone Assessment Muscle Tone WNL Yes OT Sensation Assessment Edema Edema Absent M9 OT- IP Assessment and Plan Start: 05/31/24 16:09 Freq: Status: Active Protocol: Document 06/01/24 10:08 CGR (Rec: 06/01/24 10:24 CGR [id number]) OT Summary Assessment and Plan Potential Rehabilitation Potential Excellent Analytic Complexity at Evaluation Moderate Summary OT Impairments Pain,Balance,Functional Cognition,Functional Mobility, Grooming,Dressing,Toileting, Bathing,Toilet Transfers, Shower Transfers,Activity Tolerance Progress Towards Goals Slow Progress due to Pain,Slow Progress due to Cognition Assessment Summary Pt presents as a moderate complexity evaluation s/p admit for L4-5 TLIF. Pt is doing well and processing with therapy well today. Pt performed log roll x 2 for practice then dressed and wanted to practice getting in and out of a car. Pt is likely ready for discharge home with family today. Pt left sitting up in chair, call button within reach and all needs at time met. Goals Grooming Goal Independent Dressing Goal Independent,Marketing Project Coordinator,Sock Aid Toileting Goal Independent Bathing Goal Independent Toilet Transfer Goal Independent Shower Transfer Goal Independent Days to Meet Goals 2 Frequency of Treatment Frequency Of Treatment Once a Day Treatment Plan OT Treatment Plan ADL Training,Functional Cognition Training,Functional Mobility,Patient/Family Education,Discharge Planning Other Treatment Recommendations and Next LB dressing, shower if Treatment Focus appropriate Discharge Recommendations OT Discharge Recommendations Home with 25/01 Assist Available Home Equipment Needs walker, shower chair, civil rights investigator, sock aid Transportation Needs at Discharge Private Vehicle
--- NOTE | 2024-06-01 09:35 | PT.IPTN ---
Current Diagnoses Spondylolisthesis, lumbar region (05/31/24) Spinal stenosis, lumbar region with neurogenic claudication (05/31/24) Arthrodesis status (05/31/24) Surgery Performed Operation Date: 05/31/24 10:45 Actual Procedures p L4-5 TLIF - Meño Miranda MD Physical Therapy Treatment Note M2 PT-IP Current Condition Start: 05/31/24 16:32 Freq: NEEDED Status: Active Protocol: Document 05/31/24 15:35 AB (Rec: 05/31/24 16:44 AB [id number]) Physical Therapy Current Condition Current Condition Evaluation Date 05/31/24 Treatment Diagnosis s/p L4-5 TLIF; difficulty in walking Onset Date 05/31/24 M3 PT-IP Subjective Start: 05/31/24 16:32 Freq: NEEDED Status: Active Protocol: Document 06/01/24 10:06 TS (Rec: 06/01/24 10:23 TS [id number]) Subjective Physical Therapy Visit Type Type Treatment Note Visit Start Time 09:35 Visit Stop Time 09:50 Number of CONVEYOR LINE BAKERY WORKER Visits 1 Physical Therapy Visit Comments Patient Comments Pt found sitting in the chair, she is agreeable to PT. Therapy Pain Assessment Pain When Pain Assessed During Mobility Pain Present Pain Present Pain Reported M4 PT-IP Mobility and Gait Start: 05/31/24 16:32 Freq: NEEDED Status: Active Protocol: Document 06/01/24 10:06 TS (Rec: 06/01/24 10:23 TS [id number]) PT-Bed Mobility Assessment Rolling Type of Rolling Log Rolling Level of Assist Minimal Assistance Supine to Sit Supine to Sit Standby Assistance Sit to Supine Sit to Supine Minimal Assistance Scooting Scooting to Edge of Bed Standby Assistance PT-Transfer Assessment Sit to and From Stand Sit to and from Stand Standby Assistance Equipment Transfer Assistive Device Gait Belt,Front Wheeled Walker Orthotic/Prosthetic Devices or Brace: No Comments Mobility Comments STS with FWW SBA from the chair. Sit to supine into bed Asif with cues for coming down onto R side. Supine to sit SBA with BUE support. She ambulates ~10' in the room SBA . She performs stairs x1 with use of FWW. Pt sits back in the chair, all needs met. Gait Assessment Gait Gait Assistance Required: Standby Assistance Distance (Feet) 10 Able to Maintain Weight Bearing Status Yes During Gait Assistive Devices Assistive Device Gait Belt,Front Wheeled Walker Orthotic/Prosthetic Devices or Brace: No Gait Deviations General Gait Pattern Decreased Stride Length, Decreased Feet Clearance,Step- to Gait Factors Limiting Gait Function Factors Limiting Gait Function Decreased Activity Tolerance, Decreased Strength,Difficulty Following Directions,Limited Range of Motion,Pain,Poor Balance,Poor Safety Awareness Stair Climbing Assessment Evaluation Level of Assist On Stairs Contact Guard Assistance Devices Stair Climbing Assistive Devices Front Wheel Walker Technique/Endurance Stair Climbing Direction Ascend and Descend Stair Climbing Technique Step to Step Number of Steps Climbed 1 PT-Balance Assessment Sitting Balance and Reactions Static Sitting Balance Ability Good Dynamic Sitting Balance Ability Good Standing Balance and Reactions Static Standing Balance Ability Fair Dynamic Standing Balance Ability Fair Device Used FWW M5 PT-IP Objective Assessments Start: 05/31/24 16:32 Freq: NEEDED Status: Active Protocol: Document 05/31/24 15:35 AB (Rec: 05/31/24 16:44 AB [id number]) Orientation Orientation/Cognition Level of Alertness Alert Orientation Name,Month,Date,Year,Place, Situation Safety Awareness Decreased Safety Awareness Memory Description No Deficits Noted Gross Range of Motion Lower Extremity ROM Assessment Within Functional Limits Strength Lower Extremity Strength Assessment Within Functional Limits Sensation Assessment Sensation Gross Sensation WNL Muscle Tone Muscle Tone WNL Yes M6 PT-IP Treatment Start: 05/31/24 16:32 Freq: NEEDED Status: Active Protocol: Document 06/01/24 10:06 TS (Rec: 06/01/24 10:23 TS [id number]) Physical Therapy Treatment Education Education Provided Precautions,Weight Bearing Status,Post-Op Packet,Safety M7 PT-IP Assessment and Plan Start: 05/31/24 16:32 Freq: NEEDED Status: Active Protocol: Document 06/01/24 10:06 TS (Rec: 06/01/24 10:23 TS [id number]) PT Summary Assessment and Plan Potential Rehabilitation Potential Fair Summary Impairments Pain,ROM,Strength,Balance, Coordination,Sensation,Tone, Cognition,Bed Mobility, Transfers,Gait,Activity Tolerance Progress Towards Goals Progressing Toward Goals Assessment Summary Pt is making progress with her mobility. She is SBA for STS with use of FWW. She required some cues for bed mobility and proper logroll technique. PT is recommending home with assist. Goals Bed Mobility Goal Independent Transfer Goal Independent,Front Wheeled Walker Gait Goal Independent,Front Wheel Walker Gait Distance 200 Other Goals up/down 1 step using FWW mod I Days to Meet Goals 5 Frequency of Treatment Frequency Of Treatment Twice a Day Treatment Plan Physical Therapy Treatment Plan Bed Mobility Training,Transfer Training,Gait Training, Therapeutic Exercise,Balance Retraining,Post Op Education, Discharge Planning,Hot or Cold Pack,Neuromuscular Re-ed, Coordination Retraining,Manual Therapy Precautions Lumbar Precautions Log Roll,No Twisting,Limit Bending,Lifting Restriction of 10 lbs,Gait Belt above Incisional Area Recommendations To Nursing Amount of Assist Needed 1 Person Assist Discharge Recommendations PT Discharge Recommendations Home with Assistance Transportation Needs at Discharge Private Vehicle
--- NOTE | 2024-06-01 09:47 | PM.DS.1 ---
History of Present Illness History of Present Illness Date Patient Seen: 06/01/24 Time Patient Seen: 09:47 Chief complaint: OPB Narrative: Operative Date/Time/Diagnoses Date of procedure: 05/31/24 Time of procedure: 11:00 Pre-op diagnosis: 1. L4-5 spinal stenosis with neurogenic claudication 2. L4-5 anterolisthesis Post-op diagnosis: same Procedure & Clinicians Procedure: 1. L4-5 Postero-lateral and posterior interbody fusion 2. L4-5 interbody cage placement. 3. L4-5 decompressive laminectomy with bilateral facetecomies 4. L4-5 Posterior non-segmental instrumentation 5. Alderson of bone marrow from iliac crest 6. Utilization of microsurgical technique and operating microscope 7. Utilization of robotic assisted navigation Same procedure as scheduled: Yes Indications: Patient has been having chronic back pain and worsening lumbar radiculopathy and symptoms of neurogenic claudication. Patient was found to have severe spinal stenosis with L4-5 anterolisthesis correlating with her symptoms. Patient failed multiple conservative management with worsening pain weakness and numbness in her lower extremity. Patient has been having difficulty performing activity of daily living. After discussing risks benefits of treatment options, patient elected proceed with surgery. Surgeon: Meño Miranda Horticultural Specialty Grower Inside: Nu Cruz Click Yes if Unassisted: No Anesthesia Type: General Operative Notes Closure Type: primary Specimen(s): none sent Prosthetic devices, grafts, tissues, transplants, or devices: Globus CREO MIS screws, Rise cage Estimated Blood Loss (mL): 50 Discharge Providers Provider Discharge Date: 06/01/24 Primary care physician: ROBERT Farfan Consults: 05/31/24 14:07 Consult to Occupational Therapy Evaluate & Treat Comment: Physician Instructions: Evaluate and treat Consult to Physical Therapy Evaluate & Treat Comment: Physician Instructions: Evaluate and Treat 05/31/24 14:41 Consult to Pastoral Services Routine Comment: pt would like to see a pinion staker Discharge provider: Nu Cruz PA-C Summary Hospital Course Discharge Diagnosis: L4-5 spinal stenosis with neurogenic claudication, L4-5 anterolisthesis; s/p L4-5 lumbar fusion Hospital Course: Ms Westfall's hospital course was unremarkable. On the morning of POD# 1, she was sitting up in a chair, fully dressed, and wanted to go home. She was eating and voiding without difficulty and her pain was well-controlled with oral medication. She had worked w/ PT and done well; they had no concerns re her discharge home. Exam Vital Signs (past 8 hours): - 06/01/24 01:51 06/01/24 05:59 06/01/24 08:00 Temperature 93.3 F L 97.9 F Pulse Rate 68 73 Respiratory Rate 18 16 Blood Pressure 101/43 L 118/55 L 148/60 H Pulse Oximetry 99 100 Oxygen Flow Rate 0 Oxygen Delivery Method Room Air Oxygen Flow Rate 0 Narrative Exam Narrative: 5/5 strength in hip flexors, quadriceps, hamstrings, PF, DF, EHL bilaterally. Sensation to light touch intact throughout BLE, calves soft and compressible. Dressing placed intraoperatively is CDI. [facility] Medical History (Updated 05/26/24 @ 13:28 by Melinda Moreno RN) Osteoporosis HLD (hyperlipidemia) HTN (hypertension) Surgical History (Updated 06/01/24 @ 09:50 by Nu Cruz PA-C) History of section Hx of cholecystectomy History of carpal tunnel release Social History household members: spouse Smoking Status: Never smoker alcohol intake: never Discharge Assessment & Plan Assessment and Plan Assessment: L4-5 spinal stenosis with neurogenic claudication, L4-5 anterolisthesis; s/p L4-5 lumbar fusion Plan of Treatment: Discharge home, multimodal pain control, f/u in office as scheduled. Discharge Plan Discharge Plan Patient Disposition: Home Discharge orders & Medications Discharge Orders: Discharge (Order); Ordered 06/01/24 Ordered By: Nu Cruz Prescriptions: New oxycodone 5 mg Tablet 5 mg PO Q4-6H PRN (Reason: Pain, Moderate (4-6)) Qty: 20 0RF Continued amlodipine 5 mg tablet 5 mg PO DAILY risedronate 35 mg tablet,delayed release (DR/EC) 35 mg PO WEEKLY Follow up/Referrals: Meño Miranda MD [Physician] - 06/13/24 10:00 am ([facility] in [place]) Felicitas Gutierrez ARNP [Primary Care Provider] - Diet/Activity/Treatments Diet: Diet as Tolerated Activity: No deep bending or twisting at the waist. No lifting more than 10 pounds. Skin/Wound/Dressing Care Report to your healthcare provider any signs of infection, such as:: chills, fever, night sweats, unusual drainage and unusual redness Dressing: May shower; keep dressings as dry as possible. If dressings become wet or dirty, may remove and replace with clean, dry gauze. No bathing or otherwise soaking incisions. Do not apply any creams, lotions, or ointments to incisions. Visit Report/Discharge Packet Instructions: DI for Transforaminal Lumbar Interbody Fusion, DI for Prescription Opioid Use Stand Alone Forms: Patient Portal/API, Surgery Discharge Discharge Data Primary Care Provider: Felicitas Gutierrez Attending Provider: Meño Miranda VTE Deep Vein Thrombosis/Pulmonary Embolism Present on Admission: No
[2024-06-01] MEDS: OXYCODONE/APAP 5/325 PREPACK 1 BOTTLE MISC (10:18)
--- NOTE | 2024-06-01 11:06 | PC.NURSE ---
Day shift: Discharge instructions gone over with patient and patient's spouse. All questions answered, patient stated understanding. PIV removed prior to discharge. All belongings with patient, including bottle of narcotic pain medication from pharmacist Travis - due to all pharmacies being closed today. PCT Joe escorted patient to exit via wheelchair.
--- NOTE | 2024-06-01 12:09 | CM.DANOTE ---
Initial DCP Assessment Visit Note Reviewed EMR and team rounds for pt's medical status and updates. Met with pt at bedside to introduce self and role, pt was found to be alert/oriented, and was preparing for home d/c. Pt resides independently with her spouse in their own home in [place]. Her spouse was present to transport her home. She denies any CM assistance/resource needs during this admission. Payor: Bruce [facility] Attending: Dr. Miranda Pt is a 78 year-old F post-op day 1 from a lumbar surgery. She has a hx of chronic lower back pain that is worse at night, as well as bilateral leg cramping that is worse with standing or walking. She does not use an AD at baseline for mobility, however does have a walker in place for postoperative recovery needs. She did not have any surgical complications, and pain is well managed at time of d/c. She will f/u with Ortho in 2-weeks. Discharge Planning/Care Management CM Discharge Assessment Start: 06/01/24 12:07 Freq: Status: Active Protocol: Document 06/01/24 12:07 DPL (Rec: 06/01/24 12:09 DPL [id number]) Discharge Planning Assessment Assigned Clergy Member SONJA Matute Advance Directives? No History Provided By Patient,Medical Record Has Patient been admitted in last 30 No days? Prior Living Arrangements House Household Members spouse Type of transporation used prior to Drives own vehicle admit Independent with ADL's Yes Is patient alert and oriented? Yes Comment N/A Caregiver for Another No DME Already Rented / Owned Elevated Toilet Seat,FWW / Walker Patient/Family Preference OP PT Therapy Barriers to Discharge No Discharge Plan Home Community Services Physical Therapy Transportation Arrangement Spouse Referrals Initiated None needed Whiteboard Updated in Patient Room with Yes name and ext. # of Clergy Member Review Status In Process Please Provide Date Initial DC 06/01/24 Assessment Was Performed Pre-Anesthesia Assessment Start: 05/26/24 13:27 Freq: Status: Discharge Protocol: Document 05/26/24 13:27 LB (Rec: 05/26/24 14:22 LB [id number]) Pre-Anesthesia Assessment PAC Comment 05/26/24 Phone assessment. Patient Information Reviewed Via Phone Assessment Assessment Completed With Patient Diagnostic Results BMP/CMP,CBC,EKG Comment 05/24/24 at . Primary Care Provider Kasey Puga Medical Clearance Received Not Applicable Seen Specialist in Last 12 Months Yes Specialist Seen Orthopedist Primary Language Libyan Preferred Language Libyan Clammer Required No Height 154.94 cm Weight 56.245 kg Body Mass Index (BMI) 23.4 Hearing Ability Normal Visual Assist Glasses Dentition Type Partial- Lower Barriers to Learning None Other Aids No Hx Anesthesia Reactions No Hx Family Anesthesia Reaction No Hx Malignant Hyperthermia No Hx Blood Transfusions No Anesthesia Review Requested No Pit Slagman No alcohol intake never Smoking Status Never smoker Substance Use Type does not use Pain Present Pain Reported Musculoskeletal Symptoms Back Pain,Difficulty Walking, Muscle Cramps,Radiating Pain into Limb History of Falling (Recent or History of Yes ) Comment Accidental falls. Patient is completely paralyzed or No completely immobile Mental Status Oriented to own ability Is patient on oxygen? No Does patient have WATKINS/SOB No Hx Sleep Apnea No Currently Taking a Beta Nicky No Can You Climb a Flight of Stairs Without Yes SOB Hx Chest Pain No Hx SOB No Hx Syncope or Dizziness No Anti-Coagulant Therapy No Has a Hardware Assembler No Cardiac Testing No Hx Pacemaker/ICD No Cardiac Clearance Received Not Applicable Dysphagia No Chronic UTI No Urinary Catheter Present No Hx Urinary Self Catheterization No Diabetes No Patient No Lactating No Hx Drug Resistant Organism No Presence of External or Internal Medical No Devices Have you had any close contact with No someone diagnosed with COVID-19? Are you experiencing any of these No symptoms symptoms? Comment Denies covid last 2 months. Marital Status Lives With spouse Current Living Arrangements House Number of Floors (Floors) One Floor Number of Stairs To Enter/Railing? 2 steps without railing. Support System Spouse Does the Patient Have Assistance After Yes Surgery Patient Discharge Plan Description Return Home Additional comment Advised 1 night LOS. Feels Safe in Current Environment Yes Do you have a plan to hurt yourself or No Plan others? Do You Have Any Spiritual Beliefs That No May Affect Your HC Choices? Do You Have Any Cultural Practices That No May Affect Your HC Choices? Spiritual Referral Gnosticist clergy/Lay boarding room fixer visit Emergency Contact Name Johnson Westfall - Emergency Contact Advance Directives? No PAC Instructions Assistance for 24 hours post- op,Medications to take/avoid, Nasal antibiotic,No ETOH/ petroleum product on skin DOS, NPO,Post-op transportation,Pre -surgical wash,Sensory aids, Sturdy shoes/comfortable clothes,Do not bring valuables and remove jewelry
== END 2024-06-01 10:15 | disposition home or self-care (01) | DRG 402 ==
LOC: OR 06-02 09:43 → AC 06-02 09:43
PROVIDERS: Admitting Provider Orthopaedic Surgery Orthopaedic Surgery of the Spine; Family Provider Internal Medicine; PCP Nurse Practitioner Family; Referring Provider Orthopaedic Surgery Orthopaedic Surgery of the Spine; Visit Provider Orthopaedic Surgery Orthopaedic Surgery of the Spine
PROC: 0SG00AJ Fusion of Lumbar Vertebral Joint with Interbody Fusion Device, Posterior Approach, Anterior Column, Open Approach (ICD-10-PCS; principal; 2024-05-31 10:45)
DX: M48.062 Spinal stenosis, lumbar region with neurogenic claudication (principal); M43.16 Spondylolisthesis, lumbar region; M54.16 Radiculopathy, lumbar region; M81.0 Age-related osteoporosis without current pathological fracture; I10 Essential (primary) hypertension
CPT/HCPCS: 72100; 76000; 97162; 97166; 97530; 97535; C1713; C9290; J0171; J0690; J1100; J2405; J2704; J3010